=== PATIENT | female | born 1945 | race African-American/Black ===

== ENCOUNTER 2018-06-29 12:01 | Inpatient (IN) | payer MEDICARE ==
[~2018-06-29] VITALS: Ht 152.4 cm; Wt 79.8 kg
[2018-06-29 12:20] VITALS: BP 129/77
[2018-06-29] MEDS ORDERED: OMEPRAZOLE20 M3 ORAL (12:28)
[2018-06-29] MEDS ORDERED: AMLODIPINE BESYL5 MG ORAL (12:28)
[2018-06-29] MEDS ORDERED: ASPIR 8181 MG ORAL (12:28)
[2018-06-29] MEDS ORDERED: HYDROCHLOROTH12.5 MG ORAL (12:28)
[2018-06-29] MEDS ORDERED: Aspirin Baby 81mg ORAL ONE (13:15)
--- NOTE | 2018-06-29 13:21 | Emergency Room Report ---
History of Present Illness General Chief Complaint: Chest Pain Source: Patient Present Illness HPI 73yo f patient with no PMH is nonverbal from senior care presents with low BP, sent by Dr. Connor. NO reported h/o fever, vomiting, SOB, any complaint. Allergies: Coded Allergies: No Known Allergies (Unverified , 06/29/18) Patient History Limited by: medical condition Reviewed Nursing Documentation: PMH: Agreed; PSxH: Agreed Nursing Documentation-PMH Past Medical History: No History, Except For Hx Cardiac Problems: Yes Hx Hypertension: Yes Hx Pacemaker: No Hx Asthma: No - HX of tracheostomy Hx COPD: No Hx Diabetes: No Hx Cancer: No Hx Gastrointestinal Problems: Yes - gallbladder sugery Hx Dialysis: No History Of Psychiatric Problem: No Hx Neurological Problems: Yes Hx Cerebrovascular Accident: Yes Hx Seizures: No Review of Systems All Other Systems: limited Physical Exam Vital Signs Date Time Temp Pulse Resp B/P (MAP) Pulse Ox O2 Delivery O2 Flow Rate FiO2 06/29/18 12:10 97.9 89 16 170/103 95 Room Air Sp02 EP Interpretation: reviewed, normal General Appearance: no apparent distress, alert, non-toxic Head: normocephalic Eyes: bilateral eye normal inspection, bilateral eye EOMI ENT: normal ENT inspection, hearing grossly normal, dry mucus membranes Neck: normal inspection, full range of motion, supple, supple/symm/no masses Respiratory: chest non-tender, lungs clear, normal breath sounds, chest symmetrical, palpation of chest normal Cardiovascular #1: normal peripheral pulses, regular rate, rhythm, no edema, no gallop, no murmur, no rub Cardiovascular #2: 1+ radial (R); 2+ radial (R); 1+ radial (L); 2+ radial (L); 1+ dorsalis pedis (R); 2+ dorsalis pedis (R); 1+ dorsalis pedis (L); 2+ dorsalis pedis (L) Gastrointestinal: normal inspection, non tender, soft, no mass, no guarding, no rebound Rectal: deferred Genitourinary: normal inspection, no CVA tenderness Musculoskeletal: back normal, gait/station normal, normal range of motion, non- tender, no calf tenderness, other - contracted extremities Neurologic: alert, responsive, sensory intact, speech normal Psychiatric: judgement/insight normal, memory normal, mood/affect normal, no suicidal/homicidal ideation Skin: normal color, no rash, warm/dry, normal turgor Lymphatic: no adenopathy Medical Decision Making Diagnostic Impression: Primary Impression: Dehydration Additional Impression: Hypotension ER Course Patient with hypotension, improved with IVF, thought to be possible sepsis, but likely just dehydration, will admit to Dr. Fabrizio Connor. Given IV unasyn. EKG Diagnostic Results EKG Time: 12:16 EP Interpretation: no stemi Rate: normal Rhythm: NSR ST Segments: no acute changes ASA given to the pt in ED: No Rhythm Strip Diag. Results Rhythm Strip Time: 13:19 EP Interpretation: yes Rate: 76 Rhythm: NSR, no PVC's, no ectopy Chest X-Ray Diagnostic Results Chest X-Ray Diagnostic Results : Chest X-Ray Ordered: Yes # of Views/Limited/Complete: 1 View Indication: Other - low bp EP Interpretation: Yes Interpretation: no consolidation, no effusion, no pneumothorax, no acute cardiopulmonary disease Impression: No acute disease Electronically Signed by: Amari Coffman MD Reevaluation Time: 13:20 Last Vital Signs Date Time Temp Pulse Resp B/P (MAP) Pulse Ox O2 Delivery O2 Flow Rate FiO2 06/29/18 12:20 98.1 74 19 129/77 100 Room Air Status: improved Disposition: ADMITTED INPATIENT Condition: Stable AMARI COFFMAN M.D Jun 29, 2018 13:20
[2018-06-29 13:26] LABS: HEMATOCRIT 39.5 % (37.0-47.0); HEMOGLOBIN 12.9 G/DL (12.0-16.0); MEAN CORPUSCULAR VOLUME 88 FL (80-99); PLATELET COUNT 182 K/UL (150-450); RED BLOOD COUNT 4.51 M/UL (4.20-5.40); RED CELL DISTRIBUTION WIDTH 14.4 % (11.6-14.8)
[2018-06-29 13:34] LABS: ANION GAP 8 mmol/L (5-15); BLOOD UREA NITROGEN 30 mg/dL (7-18); CALCIUM 9.2 MG/DL (8.5-10.1); CARBON DIOXIDE 28 MMOL/L (21-32); CHLORIDE 107 MMOL/L (98-107); CREATININE 1.1 MG/DL (0.55-1.30); SODIUM 143 MMOL/L (136-145)
[2018-06-29 13:46] LABS: ALANINE AMINOTRANSFERASE 7 U/L (12-78); ALBUMIN 2.5 G/DL (3.4-5.0); ALBUMIN/GLOBULIN RATIO 0.5 (1.0-2.7); ALKALINE PHOSPHATASE 72 U/L (46-116); ASPARTATE AMINO TRANSFERASE 18 U/L (15-37); BILIRUBIN,TOTAL 0.4 MG/DL (0.2-1.0)
--- NOTE | 2018-06-29 13:55 | Diagnostic Imaging Report ---
Indication: Chest Comparison: None A single view chest radiograph was obtained. Findings: No definite infiltrate or pulmonary vascular congestion identified. The heart is enlarged. The aorta is mildly enlarged consistent with atherosclerotic vascular disease. The bones are osteopenic. Impression: No acute disease
--- NOTE | 2018-06-29 13:55 | Emergency Room Report ---
History of Present Illness General Chief Complaint: Chest Pain Source: Patient Present Illness HPI 73-year-old female with history of hypertension, GERD, CVA with left hemiparesis , presents with midsternal chest pressure symptoms for the last 2 days, intermittent, no obvious alleviators exacerbating factors, however she thinks it may be triggered by anxiety as she is currently staying at her residence that her cousin help define and she is in between places right now. She denies fever, cough, syncope, radiation of her pain, reports no active pain currently after getting aspirin, but reports her symptoms been going on multiple times a day for 2 days. Allergies: Coded Allergies: No Known Allergies (Unverified , 06/29/18) Patient History Past Medical History: see triage record Reviewed Nursing Documentation: PMH: Agreed; PSxH: Agreed Nursing Documentation-PMH Past Medical History: No History, Except For Hx Cardiac Problems: Yes Hx Hypertension: Yes Hx Pacemaker: No Hx Asthma: No - HX of tracheostomy Hx COPD: No Hx Diabetes: No Hx Cancer: No Hx Gastrointestinal Problems: Yes - gallbladder sugery Hx Dialysis: No History Of Psychiatric Problem: No Hx Neurological Problems: Yes Hx Cerebrovascular Accident: Yes Hx Seizures: No Review of Systems All Other Systems: negative except mentioned in HPI Physical Exam Vital Signs Date Time Temp Pulse Resp B/P (MAP) Pulse Ox O2 Delivery O2 Flow Rate FiO2 06/29/18 12:10 97.9 89 16 170/103 95 Room Air Sp02 EP Interpretation: reviewed, normal General Appearance: no apparent distress, alert, non-toxic Head: normocephalic Eyes: bilateral eye normal inspection, bilateral eye PERRL, bilateral eye EOMI ENT: normal ENT inspection, hearing grossly normal, normal pharynx, no angioedema, normal voice, moist mucus membranes Neck: normal inspection, full range of motion, supple, supple/symm/no masses Respiratory: chest non-tender, lungs clear, normal breath sounds, chest symmetrical, palpation of chest normal Cardiovascular #1: normal peripheral pulses, regular rate, rhythm Cardiovascular #2: 2+ radial (R), 2+ radial (L) Gastrointestinal: normal inspection, non tender, soft, no mass, no guarding, no rebound Rectal: deferred Genitourinary: normal inspection, no CVA tenderness Musculoskeletal: back normal, gait/station normal, normal range of motion, non- tender, no calf tenderness, Shikha's Sign negative Neurologic: alert, responsive, grounds cleaner III-XII nml as tested, motor strength/tone normal, sensory intact, speech normal Psychiatric: judgement/insight normal, memory normal, mood/affect normal, no suicidal/homicidal ideation Skin: normal color, no rash, warm/dry, normal turgor Lymphatic: no adenopathy Medical Decision Making Diagnostic Impression: Primary Impression: Chest pain ER Course Patient with normal workup initially, no active cp, sent by Dr. Barry, will admit for chest pain rule out ME; do not suspect PE or dissection, bleeding ulcer, or any other serious etiology. EKG Diagnostic Results EKG Time: 12:16 EP Interpretation: no stemi Rate: normal Rhythm: NSR ST Segments: no acute changes ASA given to the pt in ED: Yes Rhythm Strip Diag. Results Rhythm Strip Time: 13:55 EP Interpretation: yes Rate: 76 Rhythm: NSR, no PVC's, no ectopy Chest X-Ray Diagnostic Results Chest X-Ray Diagnostic Results : Chest X-Ray Ordered: Yes # of Views/Limited/Complete: 1 View Indication: Chest Pain EP Interpretation: Yes Interpretation: no consolidation, no effusion, no pneumothorax, no acute cardiopulmonary disease Impression: No acute disease Electronically Signed by: Amari Coffman MD Last Vital Signs Date Time Temp Pulse Resp B/P (MAP) Pulse Ox O2 Delivery O2 Flow Rate FiO2 06/29/18 12:20 98.1 74 19 129/77 100 Room Air Disposition: ADMITTED INPATIENT Condition: Stable AMARI COFFMAN M.D Jun 29, 2018 13:55
[2018-06-29 14:00] VITALS: BP 133/79
[2018-06-29 16:30] VITALS: BP 140/75
[2018-06-29 20:00] VITALS: BP 120/67
[2018-06-29] MEDS: Latanoprost 0.005% Opth 2.5ml Soln BOTH EYES SCH (21:08)
[2018-06-29] MEDS: Heparin 5000 units/ml inj SUBQ SCH (21:09)
[2018-06-30] VITALS: BP 99/61
[2018-06-30 04:00] VITALS: BP 97/60
[2018-06-30 08:00] VITALS: BP 135/82
[2018-06-30] MEDS: hydroCHLOROthiazide 12.5mg TAB ORAL SCH (08:14)
[2018-06-30] MEDS: Heparin 5000 units/ml inj SUBQ SCH ×2 (08:15→20:51)
[2018-06-30 10:31] LABS: HEMATOCRIT 32.7 % (37.0-47.0); HEMOGLOBIN 10.4 G/DL (12.0-16.0); MEAN CORPUSCULAR VOLUME 88 FL (80-99); PLATELET COUNT 178 K/UL (150-450); RED BLOOD COUNT 3.71 M/UL (4.20-5.40); RED CELL DISTRIBUTION WIDTH 14.5 % (11.6-14.8); WHITE BLOOD COUNT 5.9 K/UL (4.8-10.8)
[2018-06-30 10:39] LABS: ANION GAP 3 mmol/L (5-15); BLOOD UREA NITROGEN 24 mg/dL (7-18); CALCIUM 8.5 MG/DL (8.5-10.1); CARBON DIOXIDE 32 MMOL/L (21-32); CHLORIDE 111 MMOL/L (98-107); CREATININE 0.9 MG/DL (0.55-1.30); POTASSIUM 3.5 MMOL/L (3.5-5.1); SODIUM 145 MMOL/L (136-145)
--- NOTE | 2018-06-30 14:56 | Cardiology Report ---
APPROVED REPORT EKG Measurement Heart [id number] MT [id number] [id number] Normal sinus rhythm Nonspecific T wave abnormality Abnormal ECG
--- NOTE | 2018-06-30 15:02 | Cardiology Report ---
APPROVED REPORT EKG Measurement Heart [id number] Sinus rhythm with premature atrial complexes Low voltage QRS Cannot rule out Anterior infarct, age undetermined Abnormal ECG
[2018-06-30 16:00] VITALS: BP 117/58
[2018-06-30 20:00] VITALS: BP 96/56
[2018-06-30] MEDS: Latanoprost 0.005% Opth 2.5ml Soln BOTH EYES SCH (21:00)
--- NOTE | 2018-06-30 22:45 | History and Physical Report ---
DATE OF ADMISSION: 06/29/2018 CHIEF COMPLAINT: Chest pain and weakness. HISTORY OF PRESENT ILLNESS: This is 73-year-old female who presented to the emergency department with chest pain and weakness. This is a new patient to me. The patient had some workup done in the emergency department that is essentially so far negative. PAST MEDICAL HISTORY: 1. Hypertensive cardiovascular disease. 2. Status post CVA with left hemiparesis. 3. Status post cholecystectomy. 4. Glaucoma. HOME MEDICATIONS: Amlodipine, baby aspirin, hydrochlorothiazide, omeprazole. ALLERGIES: No known drug allergies . FAMILY HISTORY: Unremarkable. SOCIAL HISTORY: She lives at home. HABITS: She is a nonsmoker and nondrinker. There is no history of illicit drug abuse. REVIEW OF SYSTEMS: HEENT: Hearing and eyesight are normal. ENDOCRINE: No history of diabetes, thyroid, or adrenal problems. RESPIRATORY: She denies shortness of breath, cough, or hemoptysis. CARDIOVASCULAR: Please refer to history of present illness. NEUROLOGICAL: Significant for history of stroke with left hemiparesis. GENITOURINARY: She denies dysuria, frequency, urgency, or hematuria. PHYSICAL EXAMINATION: GENERAL: This is an elderly -[place] female who is in no acute distress. VITAL SIGNS: Blood pressure 135/82, pulse 87 and regular, respirations 18, and temperature 98.3 degrees. HEENT: Head is normocephalic and atraumatic. Pupils are equal, round, and reactive to light and accommodation consensually. NECK: Supple. Trachea midline. There was no lymphadenopathy or thyromegaly. LUNGS: Clear to auscultation and percussion. HEART: Regular rate and rhythm without rubs, murmurs, or gallops. ABDOMEN: Soft and nontender. Bowel sounds were active. EXTREMITIES: No clubbing, cyanosis, or edema. NEUROLOGIC: She is alert and oriented x4. Cranial nerves II through XII intact. She has left hemiparesis. LABORATORY AND ANCILLARY DATA: Chest x-ray within normal limits. CBC, hemoglobin 10.4, otherwise CBC within normal limits. Chemistry, magnesium 1.6, otherwise within normal limits. ASSESSMENT: 1. Chest pain, etiology unclear. 2. Anemia, etiology unclear. PLAN: 1. Repeat hemoglobin. 2. Replenish magnesium. 3. Rule out GI bleed. 4. Rule out acute coronary insufficiency. Feliz Ponce M.D. DR: CLAUDIO JOB#: [id number] CC:
[2018-07-01] VITALS: BP 115/73
[2018-07-01 04:00] VITALS: BP 114/69
[2018-07-01 08:00] VITALS: BP 119/65
[2018-07-01 08:19] LABS: HEMATOCRIT 34.2 % (37.0-47.0); HEMOGLOBIN 10.9 G/DL (12.0-16.0); MEAN CORPUSCULAR VOLUME 89 FL (80-99); PLATELET COUNT 165 K/UL (150-450); RED BLOOD COUNT 3.82 M/UL (4.20-5.40); RED CELL DISTRIBUTION WIDTH 14.9 % (11.6-14.8); WHITE BLOOD COUNT 7.3 K/UL (4.8-10.8)
[2018-07-01 08:52] LABS: % IRON SATURATION 34 % (15-50); IRON 72 ug/dL (50-175); TOTAL IRON BINDING CAPACITY 212 ug/dL (250-450)
[2018-07-01 09:07] LABS: FERRITIN 145 NG/ML (8-388)
[2018-07-01] MEDS: hydroCHLOROthiazide 12.5mg TAB ORAL SCH (09:35)
[2018-07-01] MEDS: Heparin 5000 units/ml inj SUBQ SCH ×2 (09:37→20:47)
[2018-07-01 12:00] VITALS: BP 130/71
--- NOTE | 2018-07-01 12:53 | General Progress Note ---
Assessment/Plan Assessment/Plan CP - so far w/u negative. Needs PT eval Subjective Allergies: Coded Allergies: No Known Allergies (Unverified , 06/29/18) Subjective No new c/o Objective Last 24 Hour Vital Signs Date Time Temp Pulse Resp B/P (MAP) Pulse Ox O2 Delivery O2 Flow Rate FiO2 07/01/18 12:00 84 07/01/18 09:35 81 119/65 07/01/18 08:00 73 07/01/18 08:00 97.4 81 16 119/65 (83) 93 07/01/18 04:00 82 07/01/18 04:00 98.2 76 18 114/69 (84) 91 07/01/18 00:00 80 07/01/18 00:00 98.6 86 18 115/73 (87) 94 06/30/18 21:00 Room Air 06/30/18 20:00 99.3 81 20 96/56 (69) 94 06/30/18 16:00 75 06/30/18 16:00 98.5 78 16 117/58 (77) 92 Intake and Output 06/30/18 07/01/18 18:59 06:59 Intake Total 360 ml Balance 360 ml Intake Oral 360 ml # Voids 1 1 Laboratory Tests 07/01/18 07:00: White Blood Count 7.3, Red Blood Count 3.82L, Hemoglobin 10.9L, Hematocrit 34.2L , Mean Corpuscular Volume 89, Mean Corpuscular Hemoglobin 28.5, Mean Corpuscular Hemoglobin Concent 31.9L, Red Cell Distribution Width 14.9H, Platelet Count 165, Mean Platelet Volume 10.0, Neutrophils (%) (Auto) , Lymphocytes (%) (Auto) , Monocytes (%) (Auto) , Eosinophils (%) (Auto) , Basophils (%) (Auto) , Differential Total Cells Counted 100, Neutrophils % ( Manual) 29L, Lymphocytes % (Manual) 61H, Monocytes % (Manual) 7, Eosinophils % ( Manual) 3, Basophils % (Manual) 0, Band Neutrophils 0, Platelet Estimate Adequate, Platelet Morphology Normal, Hypochromasia 1+, Anisocytosis 1+ 07/01/18 07:55: Iron Level 72, Total Iron Binding Capacity 212L, Percent Iron Saturation 34, Unsaturated Iron Binding 140, Ferritin 145, Troponin I 0.000 Height (Feet): 5 Height (Inches): 0.00 Weight (Pounds): 176 Objective Cv RR Lungs CTA Abd SNT. BS + E No CCE Feliz Ponce MD Jul 01, 2018 12:53
[2018-07-01] MEDS ORDERED: Flu Vaccine (Alfuria) for Pts Less than 65 Years old IM ONE (14:00)
[2018-07-01 16:00] VITALS: BP 123/71
[2018-07-01 20:00] VITALS: BP 111/67
[2018-07-01] MEDS: Latanoprost 0.005% Opth 2.5ml Soln BOTH EYES SCH (20:47)
[2018-07-02] VITALS: BP 108/66
[2018-07-02 04:00] VITALS: BP 121/70
[2018-07-02 08:00] VITALS: BP 153/90
--- NOTE | 2018-07-02 08:02 | Physician Query ---
--------- THIS DOCUMENT IS A PERMANENT PART OF THE MEDICAL RECORD --------- PLEASE COMPLETE THE DOCUMENT BEFORE SIGNING Dear Dr. Ponce Date 07/02/2018 [employer] Name: Danie Weathers [employer] Phone#: [phone] Exercise your independent professional judgment when responding to query. Questions asked do not imply particular answer is desired or expected. We greatly appreciate your clarification on this issue. Clinical Documentation States: Patient is admitted with chest pain. Clinical Findings Show: Troponin: negative, BNP: 210, BP: 170/103. Medications: Pantoprazole, Hydrochlorthiazide. Please document the suspected etiology of Chest Pain: a. Type [ ] Cardiac [x ] Non-cardiac [ ] Unspecified b. Etiology - cardiac [ ] Aortic dissection [ ] Mitral valve prolapsed [ ] Acute myocardial infarction [ ] Spasm of coronary arteries [ ] Coronary Artery Disease [ ] Pericarditis c. Etiology - non-cardiac [ ] Anxiety [ ] Pleurisy [ ] Cancer [ ] Pneumonia, type [ ] Costochondritis [ ] Pneumothorax [ ] GERD/Esophagitis [ ] Pulmonary embolism [ ] Unable to determine [ ] Other: Condition Present on Admission: [ ] Yes [ ] No [ ] Clinically Undeterminable Please also document in your Progress Notes and/or Discharge Summary and indicate if the condition was present on admission. Nilda RANGEL
--- NOTE | 2018-07-02 09:42 | Cardiology Report ---
APPROVED REPORT EXAM: Two-dimensional and M-mode echocardiogram with Doppler and color Doppler. INDICATION Chest Pain M-Mode DIMENSIONS IVSd1.1 (0.7-1.1cm)Left Atrium (MM)4.7 (1.6-4.0cm) LVDd4.7 (3.5-5.6cm)Aortic Root2.8 (2.0-3.7cm) PWd0.9 (0.7-1.1cm)Aortic Cusp Exc.1.6 (1.5-2.0cm) LVDs2.5 (2.5-4.0cm) PWs1.8 cm Normal left ventricular chamber size, systolic function and wall motion. Left ventricular ejection fraction estimated to be 60 %. Borderline left ventricular hypertrophy. Anterior Echo-free space, may be due to pericardial fat or effusion. Mild left atrial enlargement. Right cardiac chamber sizes are within normal limits. Mild focal aortic valve sclerosis with adequate cusp excursion. Mildly thickened mitral valve leaflets with normal excursion. Mild mitral annulus and aortic root calcification. Pulmonic valve not well visualized. Normal tricuspid valve structure. IVC is normal in size with physiological collapse. A color flow and spectral Doppler study was performed and revealed: Trace aortic insufficiency. Peak aortic valve gradient of 19 mmHg and a mean of 8 mmHg. Mild mitral regurgitation. Mitral diastolic velocities suggest mild left ventricular diastolic dysfunction (Grade I). Mild to moderate tricuspid regurgitation. Tricuspid systolic velocities suggests peak right ventricular systolic pressure of 77 mmHg, consistent with severe pulmonary hypertension. Trace pulmonic regurgitation present.
[2018-07-02] MEDS: Heparin 5000 units/ml inj SUBQ SCH (09:52)
[2018-07-02] MEDS: hydroCHLOROthiazide 12.5mg TAB ORAL SCH (09:52)
[2018-07-02 12:00] VITALS: BP 140/82
--- NOTE | 2018-07-02 13:55 | General Progress Note ---
Assessment/Plan Assessment/Plan CP - so far w/u negative. Needs PT eval - done. DC to SNF. Subjective Allergies: Coded Allergies: No Known Allergies (Unverified , 06/29/18) Subjective No new c/o Objective Last 24 Hour Vital Signs Date Time Temp Pulse Resp B/P (MAP) Pulse Ox O2 Delivery O2 Flow Rate FiO2 07/02/18 12:00 97.8 70 19 140/82 (101) 98 07/02/18 12:00 71 07/02/18 09:52 85 153/90 07/02/18 09:00 Room Air 07/02/18 08:00 97.9 85 20 153/90 (111) 96 07/02/18 08:00 85 07/02/18 06:00 72 07/02/18 04:00 98.2 76 19 121/70 (87) 94 07/02/18 00:00 74 07/02/18 00:00 98.2 75 20 108/66 (80) 97 07/01/18 20:03 Room Air 07/01/18 20:00 79 07/01/18 20:00 98.8 80 18 111/67 (82) 97 07/01/18 16:00 78 07/01/18 16:00 99.4 80 16 123/71 (88) 91 Intake and Output 07/01/18 07/02/18 18:59 06:59 Intake Total 720 ml 360 ml Balance 720 ml 360 ml Intake Oral 720 ml 360 ml # Voids 3 5 Laboratory Tests 07/02/18 11:30: Stool Occult Blood Negative Height (Feet): 5 Height (Inches): 0.00 Weight (Pounds): 176 Objective Cv RR Lungs CTA Abd SNT. BS + E No CCE Feliz Ponce MD Jul 02, 2018 13:55
[2018-07-02] MEDS ORDERED: XALATAN2.5 ML BOTH EYES (13:57)
[2018-07-02] MEDS ORDERED: NORVASC10 MG ORAL (13:57)
[2018-07-02] MEDS ORDERED: HEPARIN SO5000 UNIT2 SUBQ (13:57)
[2018-07-02] MEDS ORDERED: DIURIL25 MG ORAL (13:57)
[2018-07-02] MEDS ORDERED: PROTONIX40 MG ORAL (13:57)
[2018-07-02 16:00] VITALS: BP 142/79
--- NOTE | 2018-07-03 12:01 | Discharge Summary ---
Discharge Summary Discharge Summary _ DATE OF ADMISSION: 06/29/2018 DATE OF DISCHARGE: 07/02/2018 REASON FOR ADMISSION: 73 years old female with past medical history of hypertensive heart disease, status post CVA with left hemiparesis, glaucoma, status post cholecystectomy presented to emergency department with complaint of chest pain and weakness. Patient reported intermittent chest pain, lasted for the last 2 days. Patient felt that it was likely triggered by anxiety , since patient had no antonio ce where to stay and was between the houses. She denied fever, cough, syncope radiation of the pain. Patient was given aspirin by paramedics ,, and no chest pain afterwards. Workup in emergency room revealed elevated blood pressure 170/103. Troponin was negative EKG revealed sinus rhythm with premature atrial complexes, no acute ischemic changes. No leukocytosis , initially stabl hemoglobin and hematocrit Patient admitted with diagnoses of chest pain, rule out acute coronary syndrome , hypertension. HOSPITAL COURSE: Patient admitted to telemetry floor. Serial troponin were negative. Echocardiogram revealed preserved ejection fraction of 60%. No evidence of wall motion abnormality. Right ventricular systolic pressure of 77 consistent with severe pulmonary hypertension. Repeated EKG showed normal sinus rhythm, no acute ischemic changes. Patient was ruled out for acute myocardial infarction by negative serial troponin and absence of ischemic changes on ECG. Next day laboratory workup revealed anemia with hemoglobin 10.4 and hematocrit 32.7. Stool for occult blood was negative. Anemia workup was consistent with anemia of chronic disease. Hemoglobin and hematocrit remained at the baseline, no further trend down. Blood pressure was managed with calcium channel ernesto and hydrochlorothiazide. Blood pressure remained stable. Magnesium was replaced DVT and GI prophylaxis provided. Patient was on antiplatelet therapy with aspirin. Nitroglycerin was on board as needed. Pulse oximetry was stable on room air. Chest pain was possibly provoked by anxiety and initially elevated blood pressure, which could have been elevated due to anxiety as well. Patient was working with physical and occupational therapists. Placement was arranged to longterm facility . Patient was stable for discharge. FINAL DIAGNOSES: Chest pain , possibly due to anxiety Anemia of chronic disease Hypomagnesemia Hypertension DISCHARGE MEDICATIONS: See Medication Reconciliation list. DISCHARGE INSTRUCTIONS: Patient was discharged to the longterm facility. Follow up with medical doctor at the facility. I have been assigned to dictate discharge summary for this account. I was not involved in the patient's management. Pinky Monae NP Jul 03, 2018 12:01
--- NOTE | 2018-07-04 12:34 | Diagnostic Imaging Report ---
APPROVED REPORT CPT Code: 01413 Vascular Symptoms Comments: LEFT SIDED WEAKNESS Doppler Spectral Velocity Analysis RightLeft arteries. The Doppler spectral flow analysis indicates the degree of stenosis is minimal (20%) in the common carotid artery, mild (40%) in the internal carotid artery, and minimal (10%) in the external carotid artery. VERTEBRAL- The vertebral artery is patent, without evidence of stenosis or steal. arteries. The Doppler spectral flow analysis indicates the degree of stenosis is minimal (20%) in the common carotid artery, mild (40-50%) in the internal carotid artery, and minimal (30%) in the external carotid artery. VERTEBRAL- The vertebral artery is patent, without evidence of stenosis or steal.
== END 2018-07-02 16:30 | DRG 313 ==
LOC: EMR 13:12 → 2E 14:35 → EDBEDREQ 15:23 → 2E 06-30 04:40
DX: R07.89 Other chest pain (principal); I69.354 Hemiplegia and hemiparesis following cerebral infarction affecting left non-dominant side; F41.9 Anxiety disorder, unspecified; I11.9 Hypertensive heart disease without heart failure; H40.9 Unspecified glaucoma; Z90.49 Acquired absence of other specified parts of digestive tract; Z79.82 Long term (current) use of aspirin; D63.8 Anemia in other chronic diseases classified elsewhere; E83.42 Hypomagnesemia; K21.9 Gastro-esophageal reflux disease without esophagitis; I27.20 Pulmonary hypertension, unspecified
CPT/HCPCS: 36415; 71045; 80048; 80053; 82270; 82728; 83540; 83550; 83735; 83880; 84484; 85007; 85025; 90686; 93005; 93306; 93880; 99285